=== PATIENT | male | born 1930 | race Hispanic/Latino ===

== ENCOUNTER 2019-03-06 23:05 | Inpatient (IN) | payer MEDICARE ==
[~2019-03-06] VITALS: Ht 170.2 cm; Wt 68.9 kg
[~2019-03-06 23:05] MED LIST: LOSA50TA64 PO; OMEP-50 PO; PRAV40TA3 PO; TAMS0.4C32 PO
[2019-03-06 23:46] LABS: BASOPHILS % (AUTO) 0.2 % (0.0-5.0); EOSINOPHILS % (AUTO) 0.4 % (0.0-8.0); HEMATOCRIT 47.7 % (42-54); LYMPHOCYTES % (AUTO) 1.3 % (21.0-51.0); MEAN CORPUSCULAR HEMOGLOBIN 30.8 pg (27.0-33.0); MEAN CORPUSCULAR VOLUME 90.7 fL (79-99); MONOCYTES % (AUTO) 6.2 % (3.0-13.0); NEUTROPHILS % (AUTO) 91.9 % (40.0-77.0); PLATELET COUNT (AUTO) 124 K/uL (130-400); RED BLOOD CELL COUNT(AUTO) 5.26 MIL/uL (4.50-6.20); RED CELL DISTRIBUTION WIDTH 14.4 % (11.0-15.5)
[2019-03-06] MEDS ORDERED: ONDANSETRON HCL 4 MG/2 ML VIAL ONE (23:52)
[2019-03-06] MEDS ORDERED: FAMOTIDINE/PF 20 MG/2 ML VIAL IV ONE (23:52)
[2019-03-06] MEDS ORDERED: SODIUM CHLORIDE 0.9% 1000ML 1,000 ML IV ONE (23:53)
[2019-03-06 23:58] LABS: CREATININE 1.3 mg/dL (0.5-1.5); POTASSIUM 4.6 mmol/L (3.5-5.1)
[2019-03-07 00:01] LABS: INR 1.69 (0.85-1.15); PROTHROMBIN TIME 17.4 SEC (9.6-11.6)
[2019-03-07 00:02] LABS: ALBUMIN 3.5 g/dL (3.5-5.0); BILIRUBIN,TOTAL 1.3 mg/dL (0.2-1.0); PARTIAL THROMBOPLASTIN TIME 91.2 SEC (26.3-35.5); TOTAL PROTEIN, SERUM 7.4 g/dL (6.0-8.3)
[2019-03-07 00:58] LABS: APPEARANCE,URINE Cloudy (CLEAR); BILIRUBIN,URINE Moderate (NEGATIVE); COLOR,URINE Dark Yellow (YELLOW); GLUCOSE, URINE (UA) Negative (NEGATIVE); KETONES,URINE Negative (NEGATIVE); LEUKOCYTE ESTERASE ,URINE Trace (NEGATIVE); NITRATE,URINE Negative (NEGATIVE); OCCULT BLOOD,URINE Negative (NEGATIVE); PROTEIN,URINE POS 1+ mg/dL (NEGATIVE)
[2019-03-07 01:16] LABS: BACTERIA,URINE None Seen /HPF (None Seen); MUCUS,URINE Moderate LPF (None Seen); SQUAMOUS EPITHELIAL CELL,UR Few /HPF (0-2); WBC,URINE 0-1 /HPF (0-1)
[2019-03-07] MEDS ORDERED: ZOSYN 3.375GM+NS 50ML 50 ML IV ONE (01:23)
[2019-03-07] MEDS ORDERED: ONDANSETRON HCL 4 MG/2 ML VIAL IV PRN (02:30)
[2019-03-07] MEDS: SODIUM CHLORIDE 0.9% 1000ML 1,000 ML IV SCH ×2 (02:30→09:52)
[2019-03-07] MEDS ORDERED: LACTULOSE 20 GM/30 ML UDCUP PO PRN (02:30)
[2019-03-07] MEDS ORDERED: ACETAMINOPHEN 325 MG TAB PO PRN ×2 (02:30)
[2019-03-07] MEDS ORDERED: MAG HYDROX/AL HYDROX/SIMETH ES 30 ML SUSP UDCUP PO PRN (02:30)
[2019-03-07] MEDS: ZOSYN 3.375GM+NS 50ML 50 ML IV SCH ×3 (02:30→18:26)
[2019-03-07 06:55] VITALS: BP 127/98
[2019-03-07] MEDS: INSULIN HUMULIN R 100 UNIT/ML 3ML SQ SCH ×4 (07:30→20:56)
[2019-03-07] MEDS: FAMOTIDINE 20MG TAB 20 MG TAB PO SCH ×2 (09:51→20:56)
[2019-03-07 11:51] VITALS: BP 122/73
--- NOTE | 2019-03-07 15:18 | NUR ---
DCP CM met with pt discussed dc plans. Pt is independent, lives at home alone, daughter lives close by. Pt has a provider 4hrs/day, denies any equipments/services. Pt feels safe to go back home, daughter able to assist with transportation and needs as necessary. DC plan to home once stable. CM to cont to follow up. Addendum: 03/07/19 at 1519 by SUJIT KIM LVN CM Amended: Links added.
[2019-03-07 16:01] VITALS: BP 131/79
[2019-03-07 19:30] VITALS: BP 144/82
[2019-03-07] MEDS ORDERED: TAMSULOSIN HCL 0.4 MG CAP.ER.24H PO SCH (21:00)
[2019-03-07] MEDS ORDERED: ATORVASTATIN CALCIUM 10 MG TABLET PO SCH (21:00)
[2019-03-07 23:24] VITALS: BP 134/80
[2019-03-08] MEDS: ZOSYN 3.375GM+NS 50ML 50 ML IV SCH ×2 (02:08→10:01)
[2019-03-08 03:59] VITALS: BP 129/78
[2019-03-08] MEDS: SODIUM CHLORIDE 0.9% 1000ML 1,000 ML IV SCH ×2 (05:41→08:30)
[2019-03-08] MEDS: INSULIN HUMULIN R 100 UNIT/ML 3ML SQ SCH ×3 (06:45→16:30)
[2019-03-08 07:00] LABS: BASOPHILS % (AUTO) 0.5 % (0.0-5.0); EOSINOPHILS % (AUTO) 3.5 % (0.0-8.0); HEMATOCRIT 38.8 % (42-54); LYMPHOCYTES % (AUTO) 14.2 % (21.0-51.0); MEAN CORPUSCULAR HEMOGLOBIN 30.9 pg (27.0-33.0); MEAN CORPUSCULAR HGB CONC 33.7 g/dL (32.0-36.0); MEAN CORPUSCULAR VOLUME 91.6 fL (79-99); MONOCYTES % (AUTO) 12.2 % (3.0-13.0); NEUTROPHILS % (AUTO) 69.6 % (40.0-77.0); PLATELET COUNT (AUTO) 101 K/uL (130-400); RED BLOOD CELL COUNT(AUTO) 4.24 MIL/uL (4.50-6.20); RED CELL DISTRIBUTION WIDTH 14.3 % (11.0-15.5); WHITE BLOOD COUNT (AUTO) 6.5 K/uL (4.8-10.8)
[2019-03-08 07:18] LABS: CREATININE 1.4 mg/dL (0.5-1.5); POTASSIUM 4.1 mmol/L (3.5-5.1)
[2019-03-08 08:06] VITALS: BP 139/86
[2019-03-08 08:35] LABS: PLATELET MORPHOLOGY COMMENT SLIGHTLY DECREASED
[2019-03-08] MEDS ORDERED: LOSARTAN 50 MG TABLET PO SCH (09:00)
[2019-03-08] MEDS: FAMOTIDINE 20MG TAB 20 MG TAB PO SCH (10:01)
[2019-03-08 11:53] VITALS: BP 126/77
[2019-03-08] MEDS ORDERED: LEVO250T59 PO (14:42)
[2019-03-08] MEDS ORDERED: METR-152 PO (14:42)
[2019-03-08] MEDS ORDERED: METRONIDAZOLE 250 MG TABLET PO SCH (14:45)
[2019-03-08] MEDS ORDERED: LEVOFLOXACIN 500 MG TABLET PO SCH (14:45)
[2019-03-08 16:31] VITALS: BP 125/76
== END 2019-03-08 17:35 | disposition home or self-care (01) | DRG 392 ==
LOC: EDH 23:05 → EDHIP 03-07 02:30 → OBSVTOIN 03-07 02:30 → 3AH 03-07 06:49
PROVIDERS: ADMIT Internal Medicine; ATTEND Internal Medicine
DX: K52.9 Noninfective gastroenteritis and colitis, unspecified (principal); K57.90 Diverticulosis of intestine, part unspecified, without perforation or abscess without bleeding; E86.0 Dehydration; E78.00 Pure hypercholesterolemia, unspecified; K44.9 Diaphragmatic hernia without obstruction or gangrene; K21.9 Gastro-esophageal reflux disease without esophagitis; N40.0 Benign prostatic hyperplasia without lower urinary tract symptoms; I10 Essential (primary) hypertension; E11.9 Type 2 diabetes mellitus without complications; Z82.49 Family history of ischemic heart disease and other diseases of the circulatory system; Z83.3 Family history of diabetes mellitus; Z87.11 Personal history of peptic ulcer disease; Z90.49 Acquired absence of other specified parts of digestive tract; Z90.79 Acquired absence of other genital organ(s)
CPT/HCPCS: 36415; 74176; 80048; 80053; 81001; 82270; 82550; 82948; 83605; 83690; 84484; 85025; 85610; 85730; 87040; 93005; G0378; J2405; J2543; J3490; J7030

== ENCOUNTER 2020-10-25 20:03 | Emergency (ER) | payer MEDICARE ==
[~2020-10-25] VITALS: Ht 170.2 cm; Wt 69.9 kg
[~2020-10-25 20:03] MED LIST changes: +LEVO250T59 PO; +METR-152 PO; -OMEP-50 PO; +OMEP20CA12 PO
[2020-10-25 20:19] VITALS: BP_SYST 131; BP_SYST 134; BP_DIAS 76; BP_DIAS 92
[2020-10-25 20:34] VITALS: BP 131/76
[2020-10-25] MEDS ORDERED: ACETAMINOPHEN 500 MG TABLET PO ONE (21:15)
[2020-10-25] MEDS ORDERED: NEOMY SULF/BACITRA/POLYMYXIN B 1 EACH PACKET TP SCH (22:00)
[2020-10-25] MEDS ORDERED: KETOROLAC 30MG VIAL (30MG/ML) IM SCH (22:00)
[2020-10-25 22:57] VITALS: BP 125/80
== END 2020-10-25 23:28 | disposition home or self-care (01) ==
LOC: EDH 20:03
DX: S01.01XA Laceration without foreign body of scalp, initial encounter (principal); E11.9 Type 2 diabetes mellitus without complications; J45.909 Unspecified asthma, uncomplicated; I10 Essential (primary) hypertension; E78.49 Other hyperlipidemia; Z79.899 Other long term (current) drug therapy; W01.198A Fall on same level from slipping, tripping and stumbling with subsequent striking against other object, initial encounter; Y93.H2 Activity, gardening and landscaping; Y92.096 Garden or yard of other non-institutional residence as the place of occurrence of the external cause; Y99.8 Other external cause status
CPT/HCPCS: 12001; 70450; 96372; 99284; J1885